=== PATIENT | male | born 1970 | race Caucasian/White ===

== ENCOUNTER 2017-10-21 14:40 | Emergency (ER) | payer OTHER, MEDICARE ==
--- NOTE | 2017-10-21 16:42 | EDM.PDOC ---
ED HPI GENERAL MEDICAL PROBLEM - General Chief Complaint: ENT Problem Stated Complaint: NECK MUSCLE PROBLEMS DIFFICULTY SWALLOWING Time Seen by Provider: 10/21/17 15:09 Source of Information: Reports: Patient History Limitations: Reports: No Limitations - History of Present Illness INITIAL COMMENTS - FREE TEXT/NARRATIVE: 47-year-old male presents for evaluation and treatment of dysphagia and right- sided neck discomfort. States that the symptoms have been going on for the last couple days. He was in the walk-in clinic yesterday and had a strep done which was negative. Started on Flexeril. He primarily complaining of pain initially to the suprasternal notch but states it has radiated up around to the right side of his neck. Changes in location but seems to be located along the right- sided sternocleidomastoid muscle. He reports associated symptoms of a sore throat. Reports a cough but attributes this to smoking. No fevers, chills, nausea, vomiting or diaphoresis. Patient reports he had similar symptoms several years ago. More located in the epigastric area. He had an upper endoscopy reports that he had abnormalities seen on his upper endoscopy. He has been on a proton pump inhibitor and takes this daily. States he has been able to swallow his secretions. He states he feels that there is something stuck in his throat but does not feel that there is anything actually stuck in his throat. Throat Pain Score (Numeric/FACES): 10 - Related Data Allergies Allergy/AdvReac Type Severity Reaction Status Date / Time codeine Allergy Hives Verified 10/21/17 15:12 diazepam [From Valium] Allergy Delusions Verified 10/21/17 15:12 haloperidol [From Haldol] Allergy Hives Verified 10/21/17 15:12 levofloxacin Allergy Hives Verified 10/21/17 15:12 Penicillins Allergy Hives Verified 10/21/17 15:12 Home Meds: Home Meds Cyclobenzaprine [Flexeril] 10 mg PO TID 10/21/17 [History] DULoxetine [Cymbalta] 60 mg PO DAILY 10/21/17 [History] Dexlansoprazole [Dexilant] 30 mg PO DAILY 10/21/17 [History] oxyCODONE HCl/Acetaminophen [Oxycodone-Acetaminophen 5-325] 1 tab PO Q6H PRN [History] tiZANidine [Zanaflex] 4 mg PO BEDTIME 10/21/17 [History] Past Medical History Gastrointestinal History: Reports: GERD Musculoskeletal History: Reports: Back Pain, Chronic, Fibromyalgia Other Musculoskeletal History: receives cortisone shots Psychiatric History: Reports: Anxiety, Depression - Past Surgical History Musculoskeletal Surgical History: Reports: Other (See Below) Other Musculoskeletal Surgeries/Procedures:: cyst to left hip Social & Family History - Tobacco Use Smoking Status *Q: Current Every Day Smoker Years of Tobacco use: 14 Packs/Tins Daily: 1 - Caffeine Use Caffeine Use: Reports: Coffee, Soda, Tea - Recreational Drug Use Recreational Drug Use: No ED ROS ENT - Review of Systems Review Of Systems: See Below Constitutional: Denies: Fever, Chills HEENT: Reports: Throat Pain, Other (reports globus sensation; reports odynophagia; no dysphagia) Respiratory: Reports: Cough (chronic) GI/Abdominal: Denies: Nausea, Vomiting Musculoskeletal: Reports: Neck Pain (right lateral neck; changing in position) ED EXAM, ENT - Physical Exam Exam: See Below Exam Limited By: No Limitations General Appearance: Alert, WD/WN, No Apparent Distress Eye Exam: Bilateral Eye: Normal Inspection Ears: Normal External Exam, Normal Canal, Hearing Grossly Normal, Normal TMs Nose: Normal Inspection Mouth/Throat: Normal Inspection, Normal Lips, Normal Oropharynx, Pharyngeal Erythema, Tonsillar Erythema. No: Peritonsillar Mass, Throat Swelling, Tongue Swelling, Tonsillar Exudates, Trismus, Uvular Deviation Neck: Normal Inspection, Supple, Full Range of Motion, Lymphadenopathy (R), Other (tenderness to palpation along the right SCM muscle) Respiratory/Chest: No Respiratory Distress, Lungs Clear, Normal Breath Sounds Cardiovascular: Normal Peripheral Pulses, Regular Rate, Rhythm, No Murmur Neurological: Alert, Oriented, Normal Cognition Psychiatric: Normal Affect, Normal Mood Skin: Warm, Dry, Normal Color Course - Vital Signs Last Recorded V/S: Last Vital Signs Temp 36.7 C 10/21/17 15:05 Pulse 85 10/21/17 16:50 Resp 16 10/21/17 16:50 BP 131/86 10/21/17 15:05 Pulse Ox 98 10/21/17 16:50 - Orders/Labs/Meds Labs: Laboratory Tests 10/21/17 10/21/17 10/21/17 Range/Units 15:50 15:50 15:50 WBC 8.43 (4.23-9.07) K/mm3 RBC 4.43 L (4.63-6.08) M/mm3 Hgb 13.7 (13.7-17.5) gm/L Hct 41.7 (40.1-51.0) % MCV 94.1 H (79.0-92.2) fl MCH 30.9 (25.7-32.2) pg MCHC 32.9 (32.2-35.5) g/dl RDW Std Deviation 44.0 H (35.1-43.9) fL Plt Count 305 (163-337) K/mm3 MPV 9.4 (9.4-12.3) fl Neut % (Auto) 58.0 (34.0-67.9) % Lymph % (Auto) 32.4 (21.8-53.1) % [place] % (Auto) 6.9 (5.3-12.2) % Eos % (Auto) 2.4 (0.8-7.0) Baso % (Auto) 0.2 (0.1-1.2) % Neut # (Auto) 4.89 (1.78-5.38) K/mm3 Lymph # (Auto) 2.73 (1.32-3.57) K/mm3 [place] # (Auto) 0.58 (0.30-0.82) K/mm3 Eos # (Auto) 0.20 (0.04-0.54) K/mm3 Baso # (Auto) 0.02 (0.01-0.08) K/mm3 C-Reactive Protein < 0.2 (<1.0) mg/dL Monoscreen Negative (NEGATIVE) - Re-Assessments/Exams Free Text/Narrative Re-Assessment/Exam: 10/21/17 16:38 I reviewed the labs with the patient. He had a negative strep yesterday in clinic. His throat looks erythematous. Likely viral in origin. [place] was negative. I feel his neck discomfort is tenderness due to lymphnodes that are likely reactive due to his throat. I see no need to image his neck today given his negative labs. Neck abscess felt to be unlikely. Encouraged symptomatic care. He is to follow-up if not better in 1 week and return to the ER if his symptoms change or worsen. Discharge instructions as documented. Departure - Departure Time of Disposition: 16:40 Disposition: Home, Self-Care 01 Condition: Fair Clinical Impression: GERD (gastroesophageal reflux disease), Lymphadenopathy - Discharge Information Instructions: Lymphadenopathy, Gastroesophageal Reflux Disease, Adult, Easy-to- Read Referrals: PCP,Not In Area [Primary Care Provider] - Jeni Robison [Physician] - Forms: ED Department Discharge Additional Instructions: [id number] Tylenol or Motrin as needed for discomfort relief. Clear fluids and soft foods. This should improve within the next week. If you continue to have symptoms beyond one week recommend follow-up with family medicine. If your are in the [place] area recommend Dr. Upton or Dr. Louis at the [facility]. Call [phone] schedule with one of these providers. may also try [id number] Tums or Zantac in addition to the PPI you are already on this can also be a cause of GERD. Please return to ER for symptoms change or worsen.
== END 2017-10-21 16:45 | disposition home or self-care (01) ==
LOC: JD.ED 14:40
DX: K21.9 Gastro-esophageal reflux disease without esophagitis (principal); R59.1 Generalized enlarged lymph nodes; F41.9 Anxiety disorder, unspecified; F32.9 Major depressive disorder, single episode, unspecified; F17.210 Nicotine dependence, cigarettes, uncomplicated; Z88.5 Allergy status to narcotic agent; Z79.899 Other long term (current) drug therapy; Z88.0 Allergy status to penicillin; Z88.1 Allergy status to other antibiotic agents
CPT/HCPCS: 36415; 85025; 86140; 86308; 99284